=== PATIENT | female | born 1945 | race Caucasian/White ===

== ENCOUNTER 2021-07-19 10:34 | Inpatient (IN) ==
--- NOTE | 2021-07-19 10:50 | ED.PDOC ---
General ED Provider: Dr. KWADWO HATFIELD Chief Complaint: Shortness of Air Stated Complaint: Feels weak. No particular symptoms. Apparently has not been taking med's due to dementia. Time Seen by Provider: 07/19/21 10:48 Mode of Arrival: Walk-In Information Source: Patient Exam Limitations: Dementia Primary Care Provider: CÉSAR MELISSA Referred to ED by: PCP Nursing and Triage Documentation Reviewed and Agree: Yes Does patient meet sepsis criteria?: No System Inflammatory Response Syndrome: Not Applicable Sepsis Protocol: For patient's 13 years and over: Temp is 96.8 and below OR 101 and greater Pulse >90 BPM Resp >20/minute Acutely Altered Mental Status Are patient's symptoms suggestive of a new infection, such as: -Pneumonia -Skin, Soft Tissue -Endocarditis -UTI -Bone, Joint Infection -Implantable Device -Acute Abdominal Infection -Wound Infection -Meningitis -Blood Stream Catheter Infection -Unknown Cardiovascular Complaint Exam Palpitations Complaint/Exam Onset/Duration: Unclear - poor historian Symptoms Are: Still present Timing: Constant Initial Severity: Moderate Current Severity: Moderate Character: Reports Pounding Aggravating: Reports None Alleviating: Reports None Associated Signs and Symptoms: Reports Shortness of breath (mild) Related Surgical History: Reports None Cardiac Risk Factors: Reports Hypertension Pulmonary Embolism Risk Factors: Reports None Atrial Fibrillation Risk Factors: Reports Hypertension Thyroid Exam: Normal Review of Systems Review Of Systems Constitutional: Reports Weakness; Denies Fever Eyes: Reports No symptoms Ears, Nose, Mouth, Throat: Reports No symptoms Respiratory: Reports No symptoms Cardiac: Reports Lightheadedness and Palpitations GI: Reports No symptoms : Reports No symptoms Musculoskeletal: Reports No symptoms Skin: Reports No symptoms Neurological: Reports No symptoms Endocrine: Reports No symptoms Hematologic/Lymphatic: Reports No symptoms All Other Systems: Reviewed and Negative [facility] Medical History (Updated 07/19/21 @ 15:18 by SANDRINE KRAUS RN) COPD (chronic obstructive pulmonary disease) Hypertension Low back pain Pain in both feet Umbilical hernia Varicose veins of both lower extremities Social History (Updated 07/19/21 @ 15:09 by SANDRINE KRAUS RN) Smoking and tobacco status: Never smoker Surgical History (Updated 07/19/21 @ 15:09 by SANDRINE KRAUS RN) H/O total hysterectomy History of D&C Female Reproductive History Menstrual Hx Hysterectomy: Yes Hx Tubal Ligation: No Physical Exam Physical Exam Appearance: Reports Thin Ill-appearing: Moderate Pain Distress: Mild Eyes: Reports SRINATH ENT: Reports Oropharynx normal Neck: Supple Respiratory: Reports Airway patent and Breath sounds clear Cardiovascular: Reports RRR and Tachycardia GI/: Reports Soft and Nontender Musculoskeletal: Reports Limited ROM and Limited strength Skin: Reports Warm and Dry Neurological: Reports Sensation intact, Motor intact, Alert and Other (dementia evident) Psychiatric: Reports Affect appropriate and Mood appropriate Interpretation Radiology Interpretation Radiology Interpretation By: Radiologist Radiology Results: No acute changes Exam Interpreted: Portable CXR Xray Comments: CMG EKG Interpretation Time of EKG #1: 11:06 Rate: Tachy Rhythm: Sinus Ectopy: None [place]: NL ST Segment: Other Interpretation: Sinus tach at 129 with NSSTW changes. Physician Notification Case Discussed Physician Notified: Dr. Melissa Comments: Admit Endorsed To/Discussed With: Dr. Melissa Admit/Transition Orders Entered by ED Provider: Yes Admit To: Inpatient Critical Care Note Critical Care Note Total Critical Care Time (mins): 30 Comments: Uncontrolled HTN and tachycardia work-up, tx. Course Course Hematology/Chemistry: 07/19/21 11:14 07/19/21 11:30 Orders, Labs, Meds: Lab Review 07/19/21 07/19/21 07/19/21 11:08 11:13 11:14 WBC 5.27 RBC 4.35 Hgb 13.7 Hct 40.9 MCV 94.0 MCH 31.5 H MCHC 33.5 RDW Coeff of Jennifer 11.9 Plt Count 181 Immature Gran % (Auto) 0.4 Neut % (Auto) 80.0 H Lymph % (Auto) 11.0 [place] % (Auto) 7.6 Eos % (Auto) 0.6 Baso % (Auto) 0.4 Neut # (Auto) 4.2 Lymph # (Auto) 0.6 [place] # (Auto) 0.4 Eos # (Auto) 0.0 Baso # (Auto) 0.0 Immature Gran # (Auto) 0.0 Sodium Potassium Chloride Carbon Dioxide Anion Gap BUN Creatinine Estimated GFR (MDRD) BUN/Creatinine Ratio Glucose Hemoglobin A1c Calcium Magnesium Total Bilirubin AST ALT Alkaline Phosphatase Troponin I NT-Pro-B Natriuret Pep Total Protein Albumin Globulin Albumin/Globulin Ratio Triglycerides Cholesterol LDL Cholesterol, Calc VLDL Cholesterol HDL Cholesterol Cholesterol/HDL Ratio TSH Urine Color Yellow Urine Clarity Clear Urine pH 7.0 Ur Specific [place] 1.020 Urine Protein Negative Urine Glucose (UA) Negative Urine Ketones Trace H Urine Blood Negative Urine Nitrite Negative Urine Bilirubin Negative Urine Urobilinogen 0.2 Ur Leukocyte Esterase 1+ H Urine Microscopic RBC 0-2 Urine Microscopic WBC 2-5 Ur Squamous Epith Cells 2-5 Ur Renal Epithelial Cell 0-2 Urine Bacteria Trace SARS CoV-2 RNA Rapid GATO Negative 07/19/21 07/19/21 07/19/21 11:30 11:30 11:30 WBC RBC Hgb Hct MCV MCH MCHC RDW Coeff of Jennifer Plt Count Immature Gran % (Auto) Neut % (Auto) Lymph % (Auto) [place] % (Auto) Eos % (Auto) Baso % (Auto) Neut # (Auto) Lymph # (Auto) [place] # (Auto) Eos # (Auto) Baso # (Auto) Immature Gran # (Auto) Sodium 135.6 Potassium 3.17 L Chloride 102.3 Carbon Dioxide 27.1 Anion Gap 9.37 BUN 5.6 L Creatinine 0.65 Estimated GFR (MDRD) 89.00 BUN/Creatinine Ratio 8.61 Glucose 119.0 H Hemoglobin A1c 5.66 Calcium 9.43 Magnesium Total Bilirubin 0.72 AST 26.5 ALT 16.8 Alkaline Phosphatase 81.1 Troponin I < 0.012 NT-Pro-B Natriuret Pep 999.000 H Total Protein 7.55 Albumin 4.39 Globulin 3.16 Albumin/Globulin Ratio 1.38 Triglycerides 96.8 Cholesterol 180.3 LDL Cholesterol, Calc 100 VLDL Cholesterol 19 HDL Cholesterol 60.9 Cholesterol/HDL Ratio 3.0 L TSH 1.010 Urine Color Urine Clarity Urine pH Ur Specific [place] Urine Protein Urine Glucose (UA) Urine Ketones Urine Blood Urine Nitrite Urine Bilirubin Urine Urobilinogen Ur Leukocyte Esterase Urine Microscopic RBC Urine Microscopic WBC Ur Squamous Epith Cells Ur Renal Epithelial Cell Urine Bacteria SARS CoV-2 RNA Rapid GATO 07/19/21 13:26 WBC RBC Hgb Hct MCV MCH MCHC RDW Coeff of Jennifer Plt Count Immature Gran % (Auto) Neut % (Auto) Lymph % (Auto) [place] % (Auto) Eos % (Auto) Baso % (Auto) Neut # (Auto) Lymph # (Auto) [place] # (Auto) Eos # (Auto) Baso # (Auto) Immature Gran # (Auto) Sodium Potassium Chloride Carbon Dioxide Anion Gap BUN Creatinine Estimated GFR (MDRD) BUN/Creatinine Ratio Glucose Hemoglobin A1c Calcium Magnesium 2.10 Total Bilirubin AST ALT Alkaline Phosphatase Troponin I NT-Pro-B Natriuret Pep Total Protein Albumin Globulin Albumin/Globulin Ratio Triglycerides Cholesterol LDL Cholesterol, Calc VLDL Cholesterol HDL Cholesterol Cholesterol/HDL Ratio TSH Urine Color Urine Clarity Urine pH Ur Specific [place] Urine Protein Urine Glucose (UA) Urine Ketones Urine Blood Urine Nitrite Urine Bilirubin Urine Urobilinogen Ur Leukocyte Esterase Urine Microscopic RBC Urine Microscopic WBC Ur Squamous Epith Cells Ur Renal Epithelial Cell Urine Bacteria SARS CoV-2 RNA Rapid GATO Orders Category Date Time Status ADMIT PATIENT INPATIENT .TO [facility] (MONITORED BED) ADMISSION 07/19/21 13:04 Active EKG-(ED ONLY) Stat CARDIO 07/19/21 10:53 Completed EKG-(IP & OP ONLY) DAILY CARDIO 07/21/21 06:00 Ordered EKG-(IP & OP ONLY) Routine CARDIO 07/20/21 06:00 Ordered OXYGEN Routine CARDIO 07/19/21 13:00 Active ACTIVITY .BR with BRP CARE 07/19/21 13:00 Completed IP: INSERT SALINE LOCK ONCE CARE 07/19/21 13:00 Active TELEMETRY MONITORING TELE CARE 07/19/21 13:00 Active TELEMETRY MONITORING TELE CARE 07/19/21 13:04 Completed VITAL SIGNS Q8HR CARE 07/19/21 13:00 Completed CARDIAC DIET DIETARY 07/19/21 Dinner Ordered CBC W/ AUTO DIFF Stat LAB 07/19/21 11:14 Completed COMPREHENSIVE METABOLIC PANEL Stat LAB 07/19/21 11:30 Completed CREATINE KINASE Routine LAB 07/19/21 19:15 Ordered MAGNESIUM Stat LAB 07/19/21 13:26 Completed NT-PROBNP Stat LAB 07/19/21 11:30 Completed SARS COV-2 RNA RAPID GATO Stat LAB 07/19/21 11:08 Completed THYROID STIMULATING HORMONE Stat LAB 07/19/21 11:30 Completed TROPONIN I Q8H LAB 07/19/21 19:15 Ordered TROPONIN I Q8H LAB 07/19/21 21:00 Ordered TROPONIN I Stat LAB 07/19/21 11:30 Completed URINALYSIS C & S IF INDICATED Stat LAB 07/19/21 11:13 Completed URINE CULTURE Stat LAB 07/19/21 11:13 Received 0.9 % Sodium Chloride [Saline Flush] MEDS 07/19/21 13:00 Active 1 syr IVF Q8HR Acetaminophen [Tylenol] MEDS 07/19/21 13:00 Active 650 mg PO Q4H PRN Atropine Sulfate Inj [Atropine Sulfate Pfs] MEDS 07/19/21 13:00 Active 0.5 mg IVP ONCE PRN Labetalol HCl [Trandate] MEDS 07/19/21 11:14 Discontinued 20 mg IVP ONCE ONE Labetalol HCl [Trandate] MEDS 07/19/21 12:57 Discontinued 20 mg IVP ONCE ONE Nitroglycerin [Nitrostat] MEDS 07/19/21 13:00 Active 0.4 mg SL Q5MIN X 3 DOSES PRN Potassium Chloride [K-Dur] MEDS 07/19/21 13:16 Discontinued 40 meq PO ONCE ONE CHEST, 1V AP ONLY Stat RADS 07/19/21 11:14 Completed Medications Generic Name Dose Route Start Last Admin Trade Name Ilir PRN Reason Stop Dose Admin Acetaminophen 650 mg 07/19/21 13:00 Acetaminophen 325 Mg Tablet PO Q4H PRN Headache Atropine Sulfate 0.5 mg 07/19/21 13:00 Atropine Sulfate Inj 1 Mg/10 Ml Disp.Syrin IVP ONCE PRN Symptomatic Bradycardia Metoprolol Tartrate 50 mg 07/19/21 15:00 07/19/21 14:52 Metoprolol Tartrate 50 Mg Tablet PO 50 mg BID ROBERT Administration Nitroglycerin 0.4 mg 07/19/21 13:00 Nitroglycerin 0.4 Mg Tab.Subl SL Q5MIN X 3 DOSES PRN Chest Pain Potassium Chloride 20 meq 07/19/21 17:00 07/19/21 17:22 Potassium Chloride 20 Meq Tab PO 20 meq BIDWM ROBERT Administration Sodium Chloride 1 syr 07/19/21 13:00 07/19/21 13:21 0.9% Sodium Chloride 10 Ml Disp.Syrin IVF 1 syr Q8HR ROBERT Administration Discontinued Medications Generic Name Dose Route Start Last Admin Trade Name Freparker PRN Reason Stop Dose Admin Amlodipine Besylate 5 mg 07/19/21 14:33 07/19/21 14:52 Amlodipine Besylate 5 Mg Tablet PO 07/19/21 14:34 5 mg ONCE ONE Administration Furosemide 40 mg 07/19/21 14:32 07/19/21 14:53 Furosemide Inj 40 Mg/4 Ml Vial IVP 07/19/21 14:33 40 mg ONCE STA Administration Labetalol HCl 20 mg 07/19/21 11:14 07/19/21 11:21 Labetalol Hcl 20 Mg/4 Ml Disp.Syrin IVP 07/19/21 11:15 20 mg ONCE ONE Administration Labetalol HCl 20 mg 07/19/21 12:57 07/19/21 13:20 Labetalol Hcl 20 Mg/4 Ml Disp.Syrin IVP 07/19/21 12:58 20 mg ONCE ONE Administration Potassium Chloride 40 meq 07/19/21 13:16 07/19/21 13:21 Potassium Chloride 20 Meq Tab PO 07/19/21 13:17 40 meq ONCE ONE Administration Vital Signs: Temp Pulse Resp BP Pulse Ox 07/19/21 10:43 96.7 F L 144 H 20 199/143 H 98 DEE Risk Score DEE Risk Score: Risk Score Odds of by 30D 0 0.1 (0.1-0.2) 1 0.3 (0.2-0.3) 2 0.4 (0.3-0.5) 3 0.7 (0.6-0.9) 4 1.2 (1.0-1.5) 5 2.2 (1.9-2.6) 6 3.0 (2.5-3.6) 7 4.8 (3.8-6.1) Discharge Plan Discharge Patient Disposition: ADMITTED INPATIENT Discharge Problem: Severe uncontrolled hypertension ED Provider: KWADWO HATFIELD Condition: Stable Physician Progress Note: [BP and HR better with labetalol, admit per Dr. Melissa.]
[2021-07-19] MEDS ORDERED: TRANDATE IVP ONE ×2 (11:14→12:57)
[2021-07-19 11:21] LABS: BILIRUBIN,URINE Negative (NEGATIVE); CLARITY,URINE Clear (CLEAR); COLOR,URINE Yellow (YELLOW); GLUCOSE, URINE (UA) Negative (NEGATIVE); KETONES,URINE Trace (NEGATIVE); LEUKOCYTE ESTERASE ,URINE 1+ (NEGATIVE); NITRITE,URINE Negative (NEGATIVE); PROTEIN,URINE Negative (NEGATIVE); URINE, BLOOD Negative (NEGATIVE); UROBILINOGEN,URINE 0.2 (0.2)
[2021-07-19 11:36] LABS: BASOPHILS % (AUTO) 0.4 % (0.0-3.0); EOSINOPHILS % (AUTO) 0.6 % (0.0-7.0); HEMATOCRIT 40.9 % (37.0-47.0); HEMOGLOBIN 13.7 g/dl (12.0-16.0); IMMATURE GRANULOCYTE % (AUTO) 0.4 % (0.0-5.0); LYMPHOCYTES # (AUTO) 0.6 K/uL (0.60-3.4); MEAN CORPUSCULAR HEMOGLOBIN 31.5 pg (27.0-31.0); MEAN CORPUSCULAR HGB CONC 33.5 (31.8-35.4); MONOCYTES # (AUTO) 0.4 K/uL (0.4-2.0); MONOCYTES % (AUTO) 7.6 (0-10); NEUTROPHILS # (AUTO) 4.2 K/ul (2.0-6.9); PLATELET COUNT 181 10^3/uL (140-440); RDW COEFFICIENT OF VARIATION 11.9 % (11.6-14.8); RED BLOOD COUNT 4.35 10^6/ul (4.20-5.40); WHITE BLOOD COUNT 5.27 K/ul (4.6-10.2)
[2021-07-19 11:38] LABS: RENAL EPITHELIAL CELLS,URINE 0-2 (NOT PRESENT); URINE RBC, MICROSCOPIC 0-2 (0-2)
[2021-07-19 11:39] LABS: BACTERIA,URINE TRACE (NOT PRESENT)
[2021-07-19 11:48] LABS: ALANINE AMINOTRANSFERASE 16.8 U/L (0-35); ALBUMIN 4.39 g/dL (3.5-5.0); ALKALINE PHOSPHATASE 81.1 U/L (53-141); ASPARTATE AMINO TRANSFERASE 26.5 U/L (14-36); BILIRUBIN,TOTAL 0.72 mg/dL (0.2-1.3); BLOOD UREA NITROGEN 5.6 mg/dL (7-17); CALCIUM 9.43 mg/dL (8.4-10.2); CARBON DIOXIDE 27.1 mmol/L (22-30.0); CHLORIDE 102.3 mmol/L (98-107); CREATININE 0.65 mg/dL (0.60-1.30); POTASSIUM 3.17 mmol/L (3.5-5.1); SODIUM 135.6 mmol/L (134.5-145); TOTAL PROTEIN 7.55 g/dL (6.3-8.2)
[2021-07-19 12:10] LABS: TROPONIN I < 0.012 ng/ml (0.0000-0.120)
--- NOTE | 2021-07-19 12:41 | DI ---
EXAM: Chest one view HISTORY: Dyspnea COMPARISON: 01/04/2021 TECHNIQUE: Single view of the chest was performed FINDINGS: The lungs are clear. There is no pleural effusion or pneumothorax. The heart is mildly e nlarged in size. The mediastinal contour is unchanged, noting atherosclerosis. There are no acute a bnormalities of the bones. IMPRESSION: Cardiomegaly. No acute cardiopulmonary process.
[2021-07-19] MEDS ORDERED: TYLENOL PO PRN (13:00)
[2021-07-19] MEDS ORDERED: ATROPINE SULFATE PFS IVP PRN (13:00)
[2021-07-19] MEDS ORDERED: NITROSTAT SL PRN (13:00)
[2021-07-19] MEDS ORDERED: K-DUR PO ONE (13:16)
[2021-07-19] MEDS ORDERED: LASIX IVP STA (14:32)
[2021-07-19] MEDS ORDERED: NORVASC PO ONE (14:33)
[2021-07-19] MEDS: LOPRESSOR PO SCH ×2 (14:52→20:45)
[2021-07-19 15:17] VITALS: BMI 34.9
[2021-07-19 16:58] LABS: CHOLESTEROL 180.3 mg/dL (0-200); HDL CHOLESTEROL 60.9 mg/dL (35-80); TRIGLYCERIDES 96.8 mg/dL (0-150)
[2021-07-19] MEDS: K-DUR PO SCH (17:22)
[2021-07-19 19:33] LABS: CREATINE KINASE 45.1 U/L (30-135)
[2021-07-19 19:46] LABS: TROPONIN I 0.012 ng/ml (0.0000-0.120)
[2021-07-20 02:39] LABS: ALANINE AMINOTRANSFERASE 12.9 U/L (0-35); ALKALINE PHOSPHATASE 76.2 U/L (53-141); BILIRUBIN,TOTAL 0.57 mg/dL (0.2-1.3); BLOOD UREA NITROGEN 8.9 mg/dL (7-17); CALCIUM 9.13 mg/dL (8.4-10.2); CARBON DIOXIDE 23.5 mmol/L (22-30.0); CHLORIDE 103.2 mmol/L (98-107); CREATINE KINASE 64.9 U/L (30-135); CREATININE 0.68 mg/dL (0.60-1.30); GLUCOSE 108.8 mg/dL (74-106); POTASSIUM 3.04 mmol/L (3.5-5.1); SODIUM 133.5 mmol/L (134.5-145); TOTAL PROTEIN 6.69 g/dL (6.3-8.2)
[2021-07-20 02:44] LABS: BASOPHILS % (AUTO) 0.2 % (0.0-3.0); EOSINOPHILS # (AUTO) 0.1 K/ul (0.0-0.7); EOSINOPHILS % (AUTO) 1.5 % (0.0-7.0); HEMATOCRIT 38.5 % (37.0-47.0); HEMOGLOBIN 12.9 g/dl (12.0-16.0); IMMATURE GRANULOCYTE % (AUTO) 0.3 % (0.0-5.0); LYMPHOCYTES # (AUTO) 0.9 K/uL (0.60-3.4); LYMPHOCYTES % (AUTO) 15.3 (10.0-50.0); MEAN CORPUSCULAR HEMOGLOBIN 31.4 pg (27.0-31.0); MEAN CORPUSCULAR HGB CONC 33.5 (31.8-35.4); MEAN CORPUSCULAR VOLUME 93.7 fl (81.0-99.0); MONOCYTES # (AUTO) 0.5 K/uL (0.4-2.0); MONOCYTES % (AUTO) 8.9 (0-10); NEUTROPHILS # (AUTO) 4.5 K/ul (2.0-6.9); NEUTROPHILS % (AUTO) 73.8 % (42.2-75.2); PLATELET COUNT 196 10^3/uL (140-440); RDW COEFFICIENT OF VARIATION 12.3 % (11.6-14.8); RED BLOOD COUNT 4.11 10^6/ul (4.20-5.40); WHITE BLOOD COUNT 6.09 K/ul (4.6-10.2)
[2021-07-20 02:50] LABS: TROPONIN I < 0.012 ng/ml (0.0000-0.120)
[2021-07-20] MEDS: COZAAR PO SCH (09:13)
[2021-07-20] MEDS: LOPRESSOR PO SCH ×2 (09:13→20:38)
[2021-07-20] MEDS: HYDROCHLOROTHIAZIDE PO SCH (09:13)
[2021-07-20] MEDS: K-DUR PO SCH ×4 (09:13→17:36)
--- NOTE | 2021-07-20 09:16 | PCM.PROG ---
Attending Provider: ATTENDING PROVIDER: Dr. CÉSAR MELISSA This patient is seen with Gabriela Parker, Nurse Practitioner. DATE OF SERVICE: 07/20/21 SUBJECTIVE: This 75 year old /WHITE F was hospitalized 07/19/21. The patient blood pressure is mildly elevated this morning. It was normal through the night, responding well to Metoprolol and Norvasc. The patient is somewhat anxious. Did discuss she has not been taking medication according to pharmacy for several months. REVIEW OF SYSTEMS: CONSTITUTIONAL: No night sweats. No fatigue, malaise, lethargy. No fever or chills. Weakness. HEENT: Eyes: No visual changes. No eye pain. No eye discharge. ENT: No runny nose. No epistaxis. No sinus pain. No odynophagia. No congestion. RESPIRATORY: No cough, no congestion. No hemoptysis. No shortness of breath. CARDIOVASCULAR: No angina symptoms. No CHF symptoms. No atypical chest pain for CAD. No palpitations. No orthopnea.. GASTROINTESTINAL: No abdominal pain. No nausea or vomiting. No diarrhea or constipation. No hematemesis. No hematochezia. GENITOURINARY: No urgency. No frequency. No dysuria. No hematuria. No obstructive symptoms. No discharge. No pain. No significant abnormal bleeding. MUSCULOSKELETAL: No musculoskeletal pain; no joint swelling. NEUROLOGICAL: Awake, alert, oriented to time, place and person. No headache. No neck pain. No syncope. No seizures. No dizziness. PSYCHIATRIC: Not anxious. No depression. No suicidal thoughts. No homicidal thoughts. SKIN: No rash. No lesions. No wounds. Leg edema. ENDOCRINE: No unexplained weight loss. No weight gain. HEMATOLOGIC/LYMPHATIC: No anemia. No purpura. No petechiae. No prolonged or excessive bleeding. No palpable lymph nodes. PHYSICAL EXAMINATION: GENERAL: The patient is awake, alert and oriented, lying in bed in no distress. VITAL SIGNS: Temperature 98.3 F, Pulse 98, Respiratory Rate 18, BP 161/90, Pulse Ox 98% HEENT: Head normocephalic, atraumatic. Eyes: Extraocular muscles are intact. Pupils are equal, round and reactive to light and accommodation. Ears: No lesions. Nose appeared normal. Throat: No exudate or erythema. NECK: Supple. No JVD, no carotid bruit. No lymphadenopathy or thyromegaly. LUNGS: Diminished breath sounds. Clear to auscultation. Percussion note normal. Chest symmetrical. HEART: S1, S2, no S3. No murmurs. No cyanosis or clubbing. No ascites. Pulses: Dorsalis pedis and posterior tibial pulses +1 to +2 both sides. ABDOMEN: Soft. Non-tender. Bowel sounds active. No CVA tenderness. No mass felt. EXTREMITIES: No edema. Full range of motion of all extremities, equal. NEUROLOGIC: No focal deficit. Cranial nerves II through XII are grossly intact. No headache. No double vision. SKIN: Not dry. Intact. Turgor-normal. LYMPHATIC: No palpable lymph nodes/no lymphedema. MUSCULOSKELETAL: Normal joints with no swelling. Muscle tone is normal. LAB REVIEW: 07/20/21 02:20 07/20/21 02:20 07/20/21 02:20: WBC 6.09, RBC 4.11 L, Hgb 12.9, Hct 38.5, MCV 93.7, MCH 31.4 H, MCHC 33.5, RDW Coeff of Jennifer 12.3, Plt Count 196, Immature Gran % (Auto) 0.3, Neut % (Auto) 73.8, Lymph % (Auto) 15.3, [place] % (Auto) 8.9, Eos % (Auto) 1.5, Baso % (Auto) 0.2, Neut # (Auto) 4.5, Lymph # (Auto) 0.9, [place] # (Auto) 0.5, Eos # (Auto) 0.1, Baso # (Auto) 0.0, Immature Gran # (Auto) 0.0 07/20/21 02:20: Sodium 133.5 L, Potassium 3.04 L, Chloride 103.2, Carbon Dioxide 23.5, Anion Gap 9.84, BUN 8.9, Creatinine 0.68, Estimated GFR (MDRD) 84.00, BUN/Creatinine Ratio 13.08, Glucose 108.8 H, Calcium 9.13, Total Bilirubin 0.57, AST 22.0, ALT 12.9, Alkaline Phosphatase 76.2, Total Creatine Kinase 64.9, Trop onin I < 0.012, Total Protein 6.69, Albumin 3.80, Globulin 2.89, Albumin/Globulin Ratio 1.31 07/19/21 19:16: Total Creatine Kinase 45.1, Troponin I 0.012 07/19/21 13:26: Magnesium 2.10 07/19/21 11:30: Triglycerides 96.8, Cholesterol 180.3, LDL Cholesterol, Calc 100, VLDL Cholesterol 19, HDL Cholesterol 60.9, Cholesterol/HDL Ratio 3.0 L 07/19/21 11:30: Hemoglobin A1c 5.66 07/19/21 11:30: Sodium 135.6, Potassium 3.17 L, Chloride 102.3, Carbon Dioxide 27.1, Anion Gap 9.37, BUN 5.6 L, Creatinine 0.65, Estimated GFR (MDRD) 89.00, BUN/Creatinine Ratio 8.61, Glucose 119.0 H, Calcium 9.43, Total Bilirubin 0.72, AST 26.5, ALT 16.8, Alkaline Phosphatase 81.1, Troponin I < 0.012, NT-Pro-B Natriuret Pep 999.000 H, Total Protein 7.55, Albumin 4.39, Globulin 3.16, Albumin/Globulin Ratio 1.38, TSH 1.010 07/19/21 11:14: WBC 5.27, RBC 4.35, Hgb 13.7, Hct 40.9, MCV 94.0, MCH 31.5 H, MCHC 33.5, RDW Coeff of Jennifer 11.9, Plt Count 181, Immature Gran % (Auto) 0.4, Neut % (Auto) 80.0 H, Lymph % (Auto) 11.0, [place] % (Auto) 7.6, Eos % (Auto) 0.6, Baso % (Auto) 0.4, Neut # (Auto) 4.2, Lymph # (Auto) 0.6, [place] # (Auto) 0.4, Eos # (Auto) 0.0, Baso # (Auto) 0.0, Immature Gran # (Auto) 0.0 07/19/21 11:13: Urine Color Yellow, Urine Clarity Clear, Urine pH 7.0, Ur Specific [place] 1.020, Urine Protein Negative, Urine Glucose (UA) Negative, Urine Ketones Trace H, Urine Blood Negative, Urine Nitrite Negative, Urine Bilirubin Negative, Urine Urobilinogen 0.2, Ur Leukocyte Esterase 1+ H, Urine Microscopic RBC 0-2, Urine Microscopic WBC 2-5, Ur Squamous Epith Cells 2-5, Ur Renal Epithelial Cell 0-2, Urine Bacteria Trace 07/19/21 11:08: SARS CoV-2 RNA Rapid GATO Negative ASSESSMENT: Please see below. 1. Hypertension 2. Noncompliance with medications, diet and lifestyle 3. Hypokalemia 4. Chronic lung disease PLAN: 1. Losartan 100-12.5mg in the morning 2. Norvasc 5mg 3. 2D echo 4. Potassium 20meq TID 5. PFT Plan and coordination of the patient's care discussed in the presence of Seam Taper Machine and nurse. SCRIBED BY: Jill LEVI scribed while in presence of service performed by Dr. Melissa/Gabriela Parker APRN on 07/20/21 ([id number])
--- NOTE | 2021-07-20 11:08 | HP ---
DATE OF SERVICE: 07/19/21 REASON FOR HOSPITALIZATION/HISTORY OF PRESENT ILLNESS: 75 year old white female who presents to the emergency room complaining of shortness of breath, weakness and states that she has not been taking her medications. PAST MEDICAL HISTORY: DJD of L spine Bladder urgency Dyslipidemia Hypertension Vitamin D deficiency Osteopenia Recurrent UTI Restless leg syndrome Palpitations Anxiety LVH Chronic lung disease Possibly undiagnosed COPD History of uterine cancer with hysterectomy Former smoker PAST SURGICAL HISTORY: Status post cholecystectomy Hysterectomy Umbilical hernia repair times two Never had colonoscopy and patient refuses. REVIEW OF SYSTEMS: CONSTITUTIONAL: No night sweats. No fatigue, malaise, lethargy. No fever or chills. HEENT: Eyes: No visual changes. No eye pain. No eye discharge. ENT: No runny nose. No epistaxis. No sinus pain. No sore throat. No odynophagia. No ear pain. No congestion. RESPIRATORY: No cough, no congestion. No hemoptysis. No shortness of breath. CARDIOVASCULAR: No angina symptoms. No CHF symptoms. No atypical chest pain for CAD. No palpitations. No PND. No orthopnea. GASTROINTESTINAL: No abdominal pain. No nausea or vomiting. No diarrhea or constipation. No hematemesis. No hematochezia. GENITOURINARY: No urgency. No frequency. No dysuria. No hematuria. No obstructive symptoms. No discharge. No pain. No significant abnormal bleeding. MUSCULOSKELETAL: No musculoskeletal pain. No joint swelling. No arthritis. NEUROLOGICAL: No headache. No neck pain. No syncope. No seizures. No dizziness. PSYCHIATRIC: Not anxious. No depression. No suicidal thoughts. No homicidal thoughts. SKIN: No rash. No lesions. No wounds. ENDOCRINE: No unexplained weight loss. No weight gain. HEMATOLOGIC/LYMPHATIC: No anemia. No purpura. No petechiae. No prolonged or excessive bleeding. No palpable lymph nodes. PERSONAL/FAMILY/SOCIAL HISTORY: She recently moved here about 9 months ago from [place]. She lives by herself. In public housing. She is a fairly new patient to us. She was last seen in our office in January this was just her second appointment and she was instructed to followup in March which she missed her appointment. Apparently She is a former smoker. Denies any alcohol or illicit drug use. According to the drug store here in town she has not filled any of her medications since January. MEDICATIONS: Potassium Chloride 10meq PO daily Atenolol 50mg PO daily Amlodipine 5mg PO daily Oxybutynin Chloride 5mg PO daily Simvastatin 20mg PO bedtime Hydrochlorothiazide 25mg PO daily Gabapentin 100mg PO bedtime Prednisone 10mg PO as directed Tramadol 50mg PO Q 8 hours PRN Cyclobenzaprine 10mg PO BID PRN ALLERGIES: Codeine PHYSICAL EXAMINATION: GENERAL: The patient is alert and oriented. VITAL SIGNS: Temperature 96.7, heart rate 144, respiratory rate 20, blood pressure 199/143 and pulse ox 98% HEENT: Head normocephalic, atraumatic. Eyes: Extraocular muscles are intact. Pupils are equal, round and reactive to light and accommodation. Ears: No lesions. Nose appeared normal. Throat: No exudate or erythema. NECK: Supple. No JVD, no carotid bruit. No lymphadenopathy or thyromegaly. LUNGS: Diminished breath sounds. Clear to auscultation. Percussion note normal. Chest symmetrical. HEART: S1, S2, no S3. No murmur. Tachycardia No cyanosis or clubbing. No ascites. Pulses: Dorsalis pedis and posterior tibial pulses +1 to +2 bilaterally. ABDOMEN: Soft. Nontender. Bowel sounds active. No CVA tenderness. No mass felt. EXTREMITIES: No edema. Full range of motion of all extremities, equal. NEUROLOGIC: No focal deficit. Cranial nerves II through XII are grossly intact. No headache, no double vision or headache. Anxious SKIN: Not dry. Intact. Turgor - normal. LYMPHATIC: No palpable lymph nodes/no lymphedema. MUSCULOSKELETAL: Normal joints with no swelling. Muscle tone is normal. LABS: WBC 5.27, hgb 13.7, hct 40.9, plt count 181, sodium 135, potassium 3.1, BUN 5.6, creatinine 0.6, glucose 119. Chest x-ray shows no acute process but cardiomegaly. Urine shows 1+ leuks along with trace bacteria. A1c is 5.6. NT PRO BNP 999. Troponin less than 0.012, Lipid panel triglyceride 96, Cholesterol 180, LDL 100, HDL 60. TSH 1.01, Negative for COVID. ASSESSMENT: 1. Uncontrolled hypertension 2. Noncompliance with medications, diet and lifestyle 3. Sinus tachycardia 4. Underlining chronic lung disease 5. Hypokalemia 6. Generalized weakness. PLAN: 1. We will admit 2. Routine telemetry orders 3. CBC and CMP daily 4. Start Metoprolol 50mg now and then again this evening 5. Norvasc 5mg now 6. Routine telemetry orders 7. CBC and CMP daily 8. T4 TSH 9. Urine for culture 10. Regular diet 11.Oxygen 1-2 liters 12. Will follow closely. TIME SPENT: More than 70 minutes. MTDD
[2021-07-20] MEDS ORDERED: XANAX PO PRN (11:16)
[2021-07-20] MEDS: NORVASC PO SCH (20:38)
[2021-07-21 05:13] LABS: BASOPHILS % (AUTO) 0.3 % (0.0-3.0); EOSINOPHILS # (AUTO) 0.1 K/ul (0.0-0.7); EOSINOPHILS % (AUTO) 1.9 % (0.0-7.0); HEMATOCRIT 42.2 % (37.0-47.0); HEMOGLOBIN 14.2 g/dl (12.0-16.0); IMMATURE GRANULOCYTE % (AUTO) 0.4 % (0.0-5.0); LYMPHOCYTES # (AUTO) 1.4 K/uL (0.60-3.4); MEAN CORPUSCULAR HEMOGLOBIN 31.7 pg (27.0-31.0); MEAN CORPUSCULAR HGB CONC 33.6 (31.8-35.4); MEAN CORPUSCULAR VOLUME 94.2 fl (81.0-99.0); MONOCYTES # (AUTO) 0.6 K/uL (0.4-2.0); MONOCYTES % (AUTO) 8.2 (0-10); NEUTROPHILS # (AUTO) 4.8 K/ul (2.0-6.9); NEUTROPHILS % (AUTO) 69.2 % (42.2-75.2); PLATELET COUNT 234 10^3/uL (140-440); RDW COEFFICIENT OF VARIATION 12.5 % (11.6-14.8); RED BLOOD COUNT 4.48 10^6/ul (4.20-5.40); WHITE BLOOD COUNT 6.86 K/ul (4.6-10.2)
[2021-07-21 05:45] LABS: ALANINE AMINOTRANSFERASE 16.3 U/L (0-35); ALBUMIN 4.07 g/dL (3.5-5.0); ALKALINE PHOSPHATASE 67.8 U/L (53-141); ASPARTATE AMINO TRANSFERASE 27.1 U/L (14-36); BILIRUBIN,TOTAL 0.68 mg/dL (0.2-1.3); BLOOD UREA NITROGEN 15.2 mg/dL (7-17); CALCIUM 9.39 mg/dL (8.4-10.2); CARBON DIOXIDE 23.2 mmol/L (22-30.0); CHLORIDE 104.3 mmol/L (98-107); CREATININE 0.98 mg/dL (0.60-1.30); GLUCOSE 115.5 mg/dL (74-106); POTASSIUM 3.85 mmol/L (3.5-5.1); SODIUM 133.1 mmol/L (134.5-145); TOTAL PROTEIN 7.07 g/dL (6.3-8.2)
[2021-07-21] MEDS: COZAAR PO SCH (08:33)
[2021-07-21] MEDS: LOPRESSOR PO SCH ×2 (08:33→20:10)
[2021-07-21] MEDS: K-DUR PO SCH ×3 (08:35→16:36)
[2021-07-21] MEDS: HYDROCHLOROTHIAZIDE PO SCH (08:35)
--- NOTE | 2021-07-21 13:21 | ECHO2D ---
Date of Exam: 07/20/2021 Ordering Physician: DR. MELISSA Room #: 111 Reason for Echo: [place] HYPERTENSION, CHEST PAIN, SHORTNESS OF BREATH M-Mode Normal Adult Results LV Dimensions Normal Adult Results AoV Opening excursions >1.6 >1.6 LVEDD-base- 3.5-5.8 4.6 Ao root dimensions 2.0-3.7 3.3 LVESD-base- 3.1-4.6 L. Atrium dimensions 1.9-3.8 3.6 Post. Wall thickness 0.8-1.1 1.2 IV septum (thickness) 0.7-1.2 1.3 Post. Wall excursion 0.72-1.3 NORMAL Septal motion NORMAL Systolic motion R. Ventricular cavity 1.5-2.0 NORMAL LVEF 60% 59% Paradoxical septal wall motion NORMAL 2-D : CALCIFIC MITRAL VALVE ANNULUS 2-D M Mode Echocardiogram was performed using apical four chamber and left parasternal long and short axis views. Calcific mitral valve annulus. Tricuspid and aortic valves appear to be normal. Contractility of the left ventricle seems to be normal, so is the cavity size. Left atrial cavity size and aortic root appear to be normal. There is no pericardial effusion. There is no thrombus noted in the left ventricle or left atrial cavity. M-MODE: MV: CALCIFIC MITRAL VALVE ANNULUS AV: NORMAL TV: NORMAL PV: NORMAL CHAMBER SIZE: NORMAL WALL MOTION: NORMAL PERICARDIUM: NORMAL INTERPRETATION: 1. LEFT VENTRICULAR HYPERTROPHY WITH STIFF LEFT VENTRICLE 2. CALCIFIC MITRAL VALVE ANNULUS 3. NORMAL LEFT VENTRICULAR CONTRACTILITY 4. NORMAL VALVES MTDD
[2021-07-21] MEDS: NORVASC PO SCH (20:10)
[2021-07-22 05:52] LABS: BASOPHILS % (AUTO) 0.4 % (0.0-3.0); EOSINOPHILS # (AUTO) 0.1 K/ul (0.0-0.7); EOSINOPHILS % (AUTO) 2.6 % (0.0-7.0); HEMATOCRIT 37.4 % (37.0-47.0); HEMOGLOBIN 12.6 g/dl (12.0-16.0); IMMATURE GRANULOCYTE % (AUTO) 0.6 % (0.0-5.0); LYMPHOCYTES # (AUTO) 1.1 K/uL (0.60-3.4); LYMPHOCYTES % (AUTO) 19.7 (10.0-50.0); MEAN CORPUSCULAR HEMOGLOBIN 31.8 pg (27.0-31.0); MEAN CORPUSCULAR HGB CONC 33.7 (31.8-35.4); MEAN CORPUSCULAR VOLUME 94.4 fl (81.0-99.0); MONOCYTES # (AUTO) 0.6 K/uL (0.4-2.0); MONOCYTES % (AUTO) 11.3 (0-10); NEUTROPHILS # (AUTO) 3.5 K/ul (2.0-6.9); NEUTROPHILS % (AUTO) 65.4 % (42.2-75.2); PLATELET COUNT 189 10^3/uL (140-440); RDW COEFFICIENT OF VARIATION 12.4 % (11.6-14.8); RED BLOOD COUNT 3.96 10^6/ul (4.20-5.40); WHITE BLOOD COUNT 5.38 K/ul (4.6-10.2)
[2021-07-22 05:58] VITALS: TEMP 97.7
[2021-07-22 06:09] LABS: ALANINE AMINOTRANSFERASE 15.7 U/L (0-35); ALBUMIN 3.58 g/dL (3.5-5.0); ALKALINE PHOSPHATASE 61.3 U/L (53-141); ASPARTATE AMINO TRANSFERASE 29.6 U/L (14-36); BILIRUBIN,TOTAL 0.54 mg/dL (0.2-1.3); BLOOD UREA NITROGEN 16.3 mg/dL (7-17); CALCIUM 9.43 mg/dL (8.4-10.2); CARBON DIOXIDE 25.4 mmol/L (22-30.0); CREATININE 1.12 mg/dL (0.60-1.30); GLUCOSE 109.3 mg/dL (74-106); POTASSIUM 3.86 mmol/L (3.5-5.1); SODIUM 132.3 mmol/L (134.5-145); TOTAL PROTEIN 6.37 g/dL (6.3-8.2)
[2021-07-22] MEDS: HYDROCHLOROTHIAZIDE PO SCH (09:02)
[2021-07-22] MEDS: LOPRESSOR PO SCH (09:02)
[2021-07-22] MEDS: COZAAR PO SCH (09:02)
[2021-07-22] MEDS: K-DUR PO SCH (09:03)
--- NOTE | 2021-07-22 09:05 | DS ---
DATE OF SERVICE: 07/22/21 FINAL DIAGNOSIS: HYPERTENSION NONCOMPLIANCE WITH MEDICATIONS, DIET AND LIFESTYLE OBESITY ANXIETY HYPOKALEMIA, RESOLVED CHRONIC LUNG DISEASE HISTORY: DJD OF THE SPINE BLADDER URGENCY DYSLIPIDEMIA HYPERTENSION VITAMIN DEFICIENCY OSTEOPENIA RECURRENT UTI RESTLESS LEG SYNDROME PALPITATIONS ANXIETY LVH CHRONIC LUNG DISEASE POSSIBLY UNDIAGNOSED COPD UTERINE CANCER WITH HYSTERECTOMY FORMER SMOKER SURGICAL HISTORY: CHOLECYSTECTOMY HYSTERECTOMY UMBILICAL HERNIA REPAIR TIMES TWO NEVER HAD COLONOSCOPY AND PATIENT REFUSES LAST VITALS: Temp Pulse Resp BP Pulse Ox 97.7 F 73 19 138/82 97 07/22/21 05:57 07/22/21 05:57 07/22/21 07:52 07/22/21 05:57 07/22/21 05:57 DISCHARGE INSTRUCTIONS: DISCHARGE : HOME TODAY LIVES INDEPENDENTLY. MD FOLLOW UP: SEE DR. MELISSA/ CHEIKH UPTON APRN/ JEANNE JOHNSON APRN IN THE OFFICE ON AUGUST 02, 2021 @ [address] BERGMAN IF ANY CONCERNS, GO TO THE NEAREST EMERGENCY ROOM IF DISTRESS OR ACUTE PAIN. CODE STATUS: FULL CODE. TAKE THESE MEDICATIONS AT HOME: Amlodipine Besylate (Amlodipine Besylate 5 Mg Tablet) 5 mg PO BEDTIME ROBERT -- ( NEW) Last Admin: 07/21/21 20:10 Dose: 5 mg Hydrochlorothiazide (Hydrochlorothiazide 25 Mg Tablet) 12.5 mg PO 0900 ROBERT -- ( NEW) Last Admin: 07/22/21 09:02 Dose: 12.5 mg Losartan Potassium (Losartan Potassium 100 Mg Tablet) 100 mg PO 0900 ROBERT -- ( NEW) Last Admin: 07/22/21 09:02 Dose: 100 mg Potassium Chloride (Potassium Chloride 10 Meq Tab) 10 MEQ DAILYWM ROBERT -- ( NEW) Last Admin: 07/22/21 09:03 Dose: 20 meq METOPROLOL 50 MG PO DAILY -- ( NEW ) ALLERGIES: codeine Adverse Reaction (Verified 07/19/21 15:02) DISCONTINUED MEDICATIONS: ALL PREVIOUS MEDICATION ORDERS NEW PRESCRIPTIONS: 1).Amlodipine Besylate 5 mg PO BEDTIME ROBERT 2).Hydrochlorothiazide 12.5 mg PO 0900 ROBERT 3).Losartan Potassium 100 mg PO 0900 ROBERT 4).Potassium Chloride 10 MEQ DAILYWM ROBERT 5).METOPROLOL 50 MG PO DAILY SMOKING: N/A DISEASE SPECIFIC EDUCATION: HYPERTENSION PROMOTION MEDICATION MD FOLLOW UP PANDEMIC PRECAUTIONS LAB REVIEW: 07/22/21 05:15 07/22/21 05:10 07/22/21 05:15: WBC 5.38, RBC 3.96 L, Hgb 12.6, Hct 37.4, MCV 94.4, MCH 31.8 H, MCHC 33.7, RDW Coeff of Jennifer 12.4, Plt Count 189, Immature Gran % (Auto) 0.6, Neut % (Auto) 65.4, Lymph % (Auto) 19.7, [place] % (Auto) 11.3 H, Eos % (Auto) 2.6, Baso % (Auto) 0.4, Neut # (Auto) 3.5, Lymph # (Auto) 1.1, [place] # (Auto) 0.6, Eos # (Auto) 0.1, Baso # (Auto) 0.0, Immature Gran # (Auto) 0.0 07/22/21 05:10: Sodium 132.3 L, Potassium 3.86, Chloride 101.0, Carbon Dioxide 25.4, Anion Gap 9.76, BUN 16.3, Creatinine 1.12, Estimated GFR (MDRD) 47.00, BUN/Creatinine Ratio 14.55, Glucose 109.3 H, Calcium 9.43, Total Bilirubin 0.54, AST 29.6, ALT 15.7, Alkaline Phosphatase 61.3, Total Protein 6.37, Albumin 3.58, Globulin 2.79, Albumin/Globulin Ratio 1.28 ACTIVITY: UP TOLERATED WITH FREQUENT REST PERIODS, CHANGE POSITIONS SLOWLY NO STRENUOUS ACTIVITY STAY INDOORS UNTIL RELEASED BY PANDEMIC PRECAUTIONS CHECK BLOOD PRESSURE DAILY DIET: HEART HEALTHY DRINK 64 OUNCES OF WTARE OR FLUIDS DAILY TO PREVENT URINARY TRACT INFECTIONS AND DEHYDRATION. HOSPITAL COURSE: 75 year old female who presented to the ER complaining of headache and over fatigued. Blood pressure was 200 systolic. Was found out according to Pharmacy that the patient has not fill any medications since January. She was given Labetalol in ther ER with some improvement. She was still tachycardic and hypertensive Started her on Metoprolol and Norvasc with good response. Later added Losartan Hydrochlorothiazide. Blood pressure since has been well controlled. The patient is very anxious do believe she has a history of mental issues likely contributing to noncompliance. She refuses any treatment for this. Potassium was 3.0 on admission and is at 3.8 today. We have discussed need to take medications and followup with use regularly in the office. She will be discharged in stable condition. PFT was ordered. TIME SPENT: More than 60 minutes. DANIELA
--- NOTE | 2021-07-22 09:06 | PCM.PROG ---
Attending Provider: ATTENDING PROVIDER: Dr. CÉSAR MELISSA This patient is seen with Gabriela Parker, Nurse Practitioner. DATE OF SERVICE: 07/22/21 SUBJECTIVE: This 75 year old /WHITE F was hospitalized 07/19/21. Blood pressure has been stable. The patient is very anxious and adamant about going home. Labs are stable. Given all new prescriptions. Instructed necessity for her to have medication compliance. REVIEW OF SYSTEMS: CONSTITUTIONAL: No night sweats. No fatigue, malaise, lethargy. No fever or chills. HEENT: Eyes: No visual changes. No eye pain. No eye discharge. ENT: No runny nose. No epistaxis. No sinus pain. No odynophagia. No congestion. RESPIRATORY: No cough, no congestion. No hemoptysis. No shortness of breath. CARDIOVASCULAR: No angina symptoms. No CHF symptoms. No atypical chest pain for CAD. No palpitations. No orthopnea.. GASTROINTESTINAL: No abdominal pain. No nausea or vomiting. No diarrhea or constipation. No hematemesis. No hematochezia. GENITOURINARY: No urgency. No frequency. No dysuria. No hematuria. No obstructive symptoms. No discharge. No pain. No significant abnormal bleeding. MUSCULOSKELETAL: No musculoskeletal pain; no joint swelling. NEUROLOGICAL: Awake, alert, oriented to time, place and person. No headache. No neck pain. No syncope. No seizures. No dizziness. PSYCHIATRIC: Anxious. No depression. No suicidal thoughts. No homicidal thoughts. SKIN: No rash. No lesions. No wounds. ENDOCRINE: No unexplained weight loss. No weight gain. HEMATOLOGIC/LYMPHATIC: No anemia. No purpura. No petechiae. No prolonged or excessive bleeding. No palpable lymph nodes. PHYSICAL EXAMINATION: GENERAL: The patient is awake, alert and oriented, lying in bed in no distress. VITAL SIGNS: Temperature 97.7 F, Pulse 73, Respiratory Rate 19, BP 138/82, Pulse Ox 97% HEENT: Head normocephalic, atraumatic. Eyes: Extraocular muscles are intact. Pupils are equal, round and reactive to light and accommodation. Ears: No lesions. Nose appeared normal. Throat: No exudate or erythema. NECK: Supple. No JVD, no carotid bruit. No lymphadenopathy or thyromegaly. LUNGS: Diminished breath sounds. Clear to auscultation. Percussion note normal. Chest symmetrical. HEART: S1, S2, no S3. No murmurs. No cyanosis or clubbing. No ascites. Pulses: Dorsalis pedis and posterior tibial pulses +1 to +2 both sides. ABDOMEN: Soft. Non-tender. Bowel sounds active. No CVA tenderness. No mass felt. EXTREMITIES: No edema. Full range of motion of all extremities, equal. NEUROLOGIC: No focal deficit. Cranial nerves II through XII are grossly intact. No headache. No double vision. SKIN: Not dry. Intact. Turgor-normal. LYMPHATIC: No palpable lymph nodes/no lymphedema. MUSCULOSKELETAL: Normal joints with no swelling. Muscle tone is normal. LAB REVIEW: 07/22/21 05:15 07/22/21 05:10 07/22/21 05:15: WBC 5.38, RBC 3.96 L, Hgb 12.6, Hct 37.4, MCV 94.4, MCH 31.8 H, MCHC 33.7, RDW Coeff of Jennifer 12.4, Plt Count 189, Immature Gran % (Auto) 0.6, Neut % (Auto) 65.4, Lymph % (Auto) 19.7, [place] % (Auto) 11.3 H, Eos % (Auto) 2.6, Baso % (Auto) 0.4, Neut # (Auto) 3.5, Lymph # (Auto) 1.1, [place] # (Auto) 0.6, Eos # (Auto) 0.1, Baso # (Auto) 0.0, Immature Gran # (Auto) 0.0 07/22/21 05:10: Sodium 132.3 L, Potassium 3.86, Chloride 101.0, Carbon Dioxide 25.4, Anion Gap 9.76, BUN 16.3, Creatinine 1.12, Estimated GFR (MDRD) 47.00, BUN/Creatinine Ratio 14.55, Glucose 109.3 H, Calcium 9.43, Total Bilirubin 0.54, AST 29.6, ALT 15.7, Alkaline Phosphatase 61.3, Total Protein 6.37, Albumin 3.58, Globulin 2.79, Albumin/Globulin Ratio 1.28 ASSESSMENT: Please see below. 1. Hypertension 2. Non-compliance 3. Obesity 4. Anxiety 5. Chronic lung disease. PLAN: 1. Continue Losartan Hydrochlorothiazide, Metoprolol and Norvasc 2. Followup in the office next week s 3. Discharge home 4. Discussed compliance with medications. Plan and coordination of the patient's care discussed in the presence of Machine Finisher and nurse. SCRIBED BY: Jill LEVI scribed while in presence of service performed by Dr. Melissa/Gabriela Parker APRN on 07/22/21 ([id number])
[2021-07-22 10:15] VITALS: BP 139/90
--- NOTE | 2021-07-22 11:05 | CM.DICTOOL ---
ADMISSION: 07/19/21 13:57 DISCHARGE: JULY 22, 2021 DATE OF SERVICE: 07/22/21 FINAL DIAGNOSIS HYPERTENSION NONCOMPLIANCE WITH MEDICATIONS, DIET AND LIFESTYLE OBESITY ANXIETY HYPOKALEMIA, RESOLVED CHRONIC LUNG DISEASE HX: DJD OF THE SPINE BLADDER URGENCY DYSLIPIDEMIA HYPERTENSION VITAMIN DEFICIENCY OSTEOPENIA RECURRENT UTI RESTLESS LEG SYNDROME PALPITATIONS ANXIETY LVH CHRONIC LUNG DISEASE POSSIBLY UNDIAGNOSED COPD UTERINE CANCER WITH HYSTERECTOMY FORMER SMOKER SURGICAL HISTORY: CHOLECYSTECTOMY HYSTERECTOMY UMBILICAL HERNIA REPAIR TIMES TWO NEVER HAD COLONOSCOPY AND PATIENT REFUSES LAST VITALS Temp Pulse Resp BP Pulse Ox 97.7 F 73 19 138/82 97 07/22/21 05:57 07/22/21 05:57 07/22/21 07:52 07/22/21 05:57 07/22/21 05:57 TAKE THESE MEDICATIONS AT HOME Amlodipine Besylate (Amlodipine Besylate 5 Mg Tablet) 5 mg PO BEDTIME ROBERT -- ( NEW) Last Admin: 07/21/21 20:10 Dose: 5 mg Hydrochlorothiazide (Hydrochlorothiazide 25 Mg Tablet) 12.5 mg PO 0900 ROBERT -- ( NEW) Last Admin: 07/22/21 09:02 Dose: 12.5 mg Losartan Potassium (Losartan Potassium 100 Mg Tablet) 100 mg PO 0900 ROBERT -- ( NEW) Last Admin: 07/22/21 09:02 Dose: 100 mg Potassium Chloride (Potassium Chloride 10 Meq Tab) 10 MEQ DAILYWM ROBERT -- ( NEW) Last Admin: 07/22/21 09:03 Dose: 20 meq METOPROLOL 50 MG PO DAILY -- ( NEW ) ALLERGIES codeine Adverse Reaction (Verified 07/19/21 15:02) DISCONTINUED MEDICATIONS ALL PREVIOUS MEDICATION ORDERS NEW PRESCRIPTIONS: 1).Amlodipine Besylate 5 mg PO BEDTIME ROBERT 2).Hydrochlorothiazide 12.5 mg PO 0900 ROBERT 3).Losartan Potassium 100 mg PO 0900 ROBERT 4).Potassium Chloride 10 MEQ DAILYWM ROBERT 5).METOPROLOL 50 MG PO DAILY SMOKING: N/A DISEASE SPECIFIC EDUCATION: HYPERTENSION PROMOTION MEDICATION MD FOLLOW UP PANDEMIC PRECAUTIONS LAB REVIEW: 07/22/21 05:15 07/22/21 05:10 07/22/21 05:15: WBC 5.38, RBC 3.96 L, Hgb 12.6, Hct 37.4, MCV 94.4, MCH 31.8 H, MCHC 33.7, RDW Coeff of Jennifer 12.4, Plt Count 189, Immature Gran % (Auto) 0.6, Neut % (Auto) 65.4, Lymph % (Auto) 19.7, [place] % (Auto) 11.3 H, Eos % (Auto) 2.6, Baso % (Auto) 0.4, Neut # (Auto) 3.5, Lymph # (Auto) 1.1, [place] # (Auto) 0.6, Eos # (Auto) 0.1, Baso # (Auto) 0.0, Immature Gran # (Auto) 0.0 07/22/21 05:10: Sodium 132.3 L, Potassium 3.86, Chloride 101.0, Carbon Dioxide 25.4, Anion Gap 9.76, BUN 16.3, Creatinine 1.12, Estimated GFR (MDRD) 47.00, BUN/Creatinine Ratio 14.55, Glucose 109.3 H, Calcium 9.43, Total Bilirubin 0.54, AST 29.6, ALT 15.7, Alkaline Phosphatase 61.3, Total Protein 6.37, Albumin 3.58, Globulin 2.79, Albumin/Globulin Ratio 1.28 PLAN: DISCHARGE : HOME TODAY LIVES INDEPENDENTLY ACTIVITY: UP TOLERATED WITH FREQUENT REST PERIODS, CHANGE POSITIONS SLOWLY NO STRENUOUS ACTIVITY STAY INDOORS UNTIL RELEASED BY MD PANDEMIC PRECAUTIONS CHECK BLOOD PRESSURE DAILY DIET: HEART HEALTHY DRINK 64 OUNCES OF WTARE OR FLUIDS DAILY TO PREVENT URINARY TRACT INFECTIONS AND DEHYDRATION. MD FOLLOW UP: SEE DR. MELISSA/ CHEIKH UPTON APRN/ JEANNE JOHNSON APRN IN THE OFFICE ON AUGUST 02, 2021 @ [address] BERGMAN IF ANY CONCERNS, GO TO THE NEAREST EMERGENCY ROOM IF DISTRESS OR ACUTE PAIN. CODE STATUS: FULL CODE MRS RICHARDSON IS ALERT AND ORIENTED X4. SHE HAS BEEN ANXIOUS ABOUT HOSPITAL STAY, HOWEVER AFTER LEARNING SHE WAS GOING TO BE DISCHARGED HOME, SHE CALMED. BLOOD PRESSURE READINGS ARE STABLE. LUNGS ARE SLIGHTLY DIMINISHED AND HAS OCCASIONAL SCANT YELLOW THICK SPUTUM. SHE HAS REMAINED AFEBRILE, NO SOA AND FUNCTIONING WELL ON ROOM AIR WITH O2 SATURATIONS IN THE UPPER 90s AND THIS AM 97% ON ROOM AIR. SHE DID HAVE AN ABNORMAL U/A AND CULTURE NOTED STAPHYLOCOCCUS LUGDUNENSIS. SHE REMAINS ASYMPTOMATIC WITH . SHE IS CONTINENT OF BOWEL AND BLADDER. LAST BM 07/22/2021. SHE IS UP AND WALKING INDEPENDENTLY AND NO DIZZINESS, WEAKNESS OR PAIN. SHE WANTS TO GET BACK TO HER APARTMENT. SHE DOES NOT WANT HOME HEALTH. MD CHEIKH SUTTON APRN ALYCE HANNAN, APRN
--- NOTE | 2021-07-22 11:56 | PN ---
DATE OF SERVICE: 07/20/21 SUBJECTIVE: The patient was seen and examined with the Nurse Practitioner. The patient's condition has improved. Her blood pressure seems to be more or less getting under control with a lot more medications. Explained about all the medications and advised to take them regularly. Her problem is noncompliance. Echo showed borderline LVH, normal LV size, LV ejection fraction seems to be 50%. Valvular structures are normal, calcific mitral annulus noted. TIME SPENT: More than 30 minutes. Plan and coordination of the patient's care discussed in the presence of nurse. DANIELA
--- NOTE | 2021-07-22 13:17 | PN ---
DATE OF SERVICE: 07/19/2021 SUBJECTIVE: The patient was seen and examined. She was hospitalized today with tachycardia and severe hypertension. Blood pressure 200/120. She was given Labetalol 20mg twice. Pulse is down to 80, blood pressure still systolic 180 to 200. The patient is going to be given Metoprolol 50mg BID and Norvasc one now with 20mg of Lasix with Potassium Also has COPD. Problem is noncompliance with medications. History and Physical was done and plan was made out the help of Nurse Practitioner. TIME SPENT: More than 30 minutes. Plan and coordination of the patient's care discussed in the presence of nurse. DANIELA
--- NOTE | 2021-07-22 13:47 | PN ---
DATE OF SERVICE: 07/21/21 SUBJECTIVE: 75 year old white female hospitalized with uncontrolled hypertension. The patient also had some shortness of breath. The patient has history of COPD. Yesterday the PFT done showed lung disease which is moderate with 45% of FEV1 and FVC, normal predicted. REVIEW OF SYSTEMS: CONSTITUTIONAL: No night sweats. No fatigue, malaise, lethargy. No fever or chills. HEENT: Eyes: No visual changes. No eye pain. No eye discharge. ENT: No runny nose. No epistaxis. No sinus pain. No sore throat. No odynophagia. No congestion. RESPIRATORY: No cough, no congestion. No hemoptysis. No shortness of breath. CARDIOVASCULAR: No angina symptoms. No CHF symptoms. No atypical chest pain for CAD. No palpitations. No PND. No orthopnea. GASTROINTESTINAL: No abdominal pain. No nausea or vomiting. No diarrhea or constipation. No hematemesis. No hematochezia. GENITOURINARY: No urgency. No frequency. No dysuria. No hematuria. No obstructive symptoms. No discharge. No pain. No significant abnormal bleeding. MUSCULOSKELETAL: No musculoskeletal pain; no joint swelling. NEUROLOGICAL: No headache. No neck pain. No syncope. No seizures. No dizziness. PSYCHIATRIC: Not anxious. No depression. No suicidal thoughts. No homicidal thoughts. SKIN: No rash. No lesions. No wounds. ENDOCRINE: No unexplained weight loss. No weight gain. HEMATOLOGIC/LYMPHATIC: No anemia. No purpura. No petechiae. No prolonged or excessive bleeding. No palpable lymph nodes. PHYSICAL EXAMINATION: VITAL SIGNS: Temperature 97.6, pulse 95, respiratory rate 18, blood pressure 127/80 and pulse ox 98%. HEENT: Head normocephalic, atraumatic. Eyes: Extraocular muscles are intact. Pupils are equal, round and reactive to light and accommodation. Ears: No lesions. Nose appeared normal. Throat: No exudate or erythema. NECK: Supple. No JVD, no carotid bruit. No lymphadenopathy or thyromegaly. LUNGS: Clear to auscultation. Percussion note normal. Chest symmetrical. HEART: S1, S2, no S3. No murmurs. No cyanosis or clubbing. No ascites. Pulses: Dorsalis pedis and posterior tibial pulses +1 to +2 bilaterally. ABDOMEN: Soft. Nontender. Bowel sounds active. No CVA tenderness. No mass felt. EXTREMITIES: No edema. Full range of motion of all extremities, equal. NEUROLOGIC: No focal deficit. Cranial nerves II through XII are grossly intact. No headache. No double vision. SKIN: Not dry. Intact. Turgor - normal. LYMPHATIC: No palpable lymph nodes/no lymphedema. MUSCULOSKELETAL: Normal joints with no swelling. Muscle tone is normal. LABS: Hgb 14.2, hct 42, WBC 6,800 normal differential, creatinine 0.9, BUN 15, potassium 3.8 ASSESSMENT: 1. Hypertensive, under control 2. COPD 3. Dyslipidemia 4. Generalized osteoarthritis PLAN: 1. Continue the same the medications, changes have been made. She is on Amlodipine 5mg along with Hydrochlorothiazide and Losartan. Metoprolol has been twice a day 2. Echo showed LVH, stiff left ventricle, normal. TIME SPENT: More than 30 minutes. Plan and coordination of the patient's care discussed in the presence of nurse. DANIELA
--- NOTE | 2021-07-27 13:53 | PN ---
DATE OF SERVICE: 07/22/21 SUBJECTIVE: The patient was seen and examined with the Nurse Practitioner. The patient's blood pressure seems to be more or less under control. She is up and about doing well. Echo showed LVH with normal LV contractility, stiff left ventricle, valvular structures seems to be normal. TIME SPENT: More than 30 minutes. Plan and coordination of the patient's care discussed in the presence of nurse. DANIELA
== END 2021-07-22 12:45 | disposition home or self-care (01) | DRG 204 ==
LOC: ED 10:34 → MEDSURG A 13:57
PROVIDERS: ADMIT Internal Medicine; ATTEND Internal Medicine
DX: Z91.11 Patient's noncompliance with dietary regimen; F41.9 Anxiety disorder, unspecified; E66.9 Obesity, unspecified; E78.5 Hyperlipidemia, unspecified; R53.1 Weakness; R00.0 Tachycardia, unspecified; Z91.19 Patient's noncompliance with other medical treatment and regimen; R06.02 Shortness of breath; E87.6 Hypokalemia; J44.9 Chronic obstructive pulmonary disease, unspecified; I10 Essential (primary) hypertension; Z20.822 Contact with and (suspected) exposure to COVID-19